=== PATIENT | female | born 1995 | race Caucasian/White ===

== ENCOUNTER 2022-08-09 12:43 | Outpatient (REF) | payer OTHER, SELFPAY ==
[2022-08-09 14:48] LABS: Monotest Negative (Negative)
== END 2022-08-09 12:44 | disposition home or self-care (01) ==
LOC: HO.WFDLDS 12:43
PROVIDERS: Visit Provider Hospitalist
DX: B34.9 Viral infection, unspecified (principal)
CPT/HCPCS: 36415; 86308